=== PATIENT | male | born 1970 | race African-American/Black ===

== ENCOUNTER 2024-11-13 01:20 | Day surgery (SDC) | payer MEDICARE, MEDICAID, SELFPAY ==
[2024-11-03 10:06] VITALS: BMI 34.0
--- NOTE | 2024-11-03 10:43 | PC.NURSE ---
Pt has appt with Dr. Hu on 11/06/24 at 1400. They will send clearance to hold blood thinner after that appt.
--- NOTE | 2024-11-09 07:34 | SUR.PREOP ---
Spoke with patient in regards to his Eliquis. Instructed the patient to not take it today 11/09/24 and will be informed by Dr. Sandhu, after his procedure, when to resume.
--- OUTSIDE RECORDS SUMMARY | 2024-11-13 01:25 | XMS_ITS | Clinical Summary ---
Author Organization [facility] Facility Address [address] [address] Care Team Providers Care Business Line Controller Name Role Phone Unavailable Primary Care Provider Unavailabl e Social History Tobacco Use Types Packs/Day Years Used Date Smoking Tobacco: Some Days Alcohol Use Standard Drinks/Week Comments No 0 (1 standard drink = 0.6 oz pur e alcohol) Sex and Gender Information Value Date Recorded Sex Assigned at Not on file Legal Sex Male 2:49 PM EDT Gender Identity Not on file Sexual Orientation Not on file Last Filed Vital Signs Vital Sign [place] Time Taken Comments Blood Pressure 142/80 10/06/2019 12:00 PM RPG PROGRAMMER ANALYST Pulse 58 10/06/2019 12:00 PM RPG PROGRAMMER ANALYST Temperature - - Respiratory Rate 18 10/06/2019 12:00 PM RPG PROGRAMMER ANALYST Oxygen Saturation 97% 10/06/2019 12:00 PM RPG PROGRAMMER ANALYST Inhaled Oxygen Concentration - - Weight 112 kg (247 lb) 10/06/2019 12:00 PM RPG PROGRAMMER ANALYST Height 175.3 cm (5' 9 ) 10/06/2019 12:00 PM RPG PROGRAMMER ANALYST Body Mass Index 36.48 10/06/2019 12:00 PM RPG PROGRAMMER ANALYST Plan of Treatment Health Maintenance Due Date Last Done Comments Pneumococcal Vaccine: Peds ( 0 to 5 Years) and At-Risk Patients (6 to 49 Years) (1 of 2 - PCV) 1974 Hepatitis B Vaccine (1 of 3 - 19+ 3-dose series) 03/28 Colorectal Cancer Screening: Annual FOBT 2017 Colorectal Cancer Screening: Colonoscopy 2017 Colorectal Cancer Screening: Sigmoidoscopy 2017 Influenza Vaccine (Season Ended) 2025
--- OUTSIDE RECORDS SUMMARY | 2024-11-13 01:25 | XMS_ITS | Clinical Summary ---
Author Organization [facility] Address [address] [place] [address] Care Team Providers Care Press Technician Name Role Phone Juan Vo MD Primary Care Provider [phone] Source Comments PLEASE NOTE, if this patient is a minor, it may be UNLAWFUL to discuss sensitive information that is contained in these records (such as FAMILY PLANNING, MENTAL HEALTH or SUBSTANCE ABUSE) with the minor patient's parent or other person without the patient's specific authorization.[facility] Allergies No known active allergies Medications lisinopril (PRINIVIL,ZESTR IL) 40 mg tablet Take 40 mg by mouth once daily 7 Active atorvastatin (LIPITOR) 80 mg tablet Take 80 mg by mouth once daily 0 Active hydrOXYzine HCL (ATARAX) 50 mg tablet Take 1 Tablet by mouth 3 (three) times daily as needed for anxiety 1 Active cholecalciferol , vitamin D3, (VITAMIN D3) 1,250 mcg (50,000 unit) tab tabletIndicatio ns:Asymptomatic HIV infection ([facility]) Take 1 Tablet by mouth once a week 4 Tablet 1 Active sertraline (ZOLOFT) 50 mg tablet Take 50 mg by mouth once daily 2 Active traMADoL (ULTRAM) 50 mg tablet Take 50 mg by mouth 3 (three) times daily 2 Active metoprolol succinate XL (TOPROL-XL) 50 mg 24 hr tablet Take 1 tablet by mouth once daily 30 Tablet 11 2 Active albuterol HFA 90 mcg/actuation inhalerIndicati ons:Paroxysmal A-fib ([facility]) 3 Active ELIQUIS 5 mg tabIndications: Paroxysmal A-fib (HCC-CMS) Take 5 mg by mouth 2 (two) times daily 3 Active FARXIGA 10 mg tabIndications: Congestive heart failure, unspecified HF chronicity, unspecified heart failure type (HCC-CMS) TAKE 1 TABLET BY MOUTH ONCE DAILY IN THE MORNING 3 Active furosemide (LASIX) 40 mg tabletIndicatio ns:Congestive heart failure, unspecified HF chronicity, unspecified heart failure type (HCC-CMS) Take by mouth 3 Active NIFEdipine XL (PROCARDIA XL) 30 mg 24 hr tabletIndicatio ns:Coronary artery disease involving qagan tayagungin coronary artery of qagan tayagungin heart without angina pectoris 3 Active spironolactone (ALDACTONE) 50 mg tabletIndicatio ns:Coronary artery disease involving qagan tayagungin coronary artery of qagan tayagungin heart without angina pectoris,Conges tive heart failure, unspecified HF chronicity, unspecified heart failure type (HCC-CMS) Take 50 mg by mouth once daily Active triamcinolone (KENALOG) 0.1 % cream triamcinolone acetonide 0.1% cream Active bictegrav-emtri cit-tenofov ala (BIKTARVY) 50-200-25 mg tabIndications: HIV infection, unspecified symptom status (HCC-CMS) Take 1 Tablet by mouth once daily 30 Tablet 5 4 Active Active Problems Patient Care Coordination No te Formatting of this note migh t be different from the original. Care Plan Date: 10/03/2023 Care plan developed by: Gunnar Gunn and Juan Vo MD Treatment goals Goal #1: maintain virologic suppression Steps to accomplish goal: adherence counseling, regular clinic visits and labs Prognosis: good; patient has longstanding history of virologic suppression since at least 2019 Goal #2: maintain regular follow up with PCP and other specialists for management of other chronic medical issues Steps to accomplish goal: encouraged regular follow up with other providers; provided adherence counseling Prognosis: good Health promotion and Self Care: Referrals needed: none Medication management: per patient; medications for the most part are prescribed by other providers Self-management support: none needed Personal care needs: none needed Barriers to care: none Follow-up Next care plan review: at next visit with PCP Contact frequency: at least monthly Frequency of visits: every 3-4 months Care plan developed and discussed with patient. Copy given to patient and/or made available in After Visit Summary via Only-apartments. The care plan is also available to all members of the care team. Care Plan Date: 12/12/2022 Dx- HIV/AIDS Gunnar will have undetectable viral load (<200 copies/ml) and a CD4 count > 200 within 3 months. Steps to Accomplish Goal: Will take ART medications as prescribed. Will fill prescription during office visit or set up delivery. Prognosis- Met/will continue to monitor. VL undetectable at last office visit. Dx- Syphilis [place] will engage in protective practices that reduce HIV/STI risk to self and others by next office visit. Steps to Accomplish Goals: Sex Will identify realistic protective practices that patient can put in place. Will request STI testing when indicated or recommended by PCP. Prognosis- Met/ will continue to monitor. RPR is stable, educated on infection prevention. Dx- CKD [place] will maintain lab values within normal range to protect kidney health. Steps to accomplish Goals: Kidney function labs will be drawn at next office visit. Prognosis- Met/will continue to monitor. Lab values stable, Gunnar will continue to f/u with his Ticket Scheduler. Referrals needed: He follows with a PCP for management of CAD, HTN, CKD, cervical myelopathy, chronic knee and back pain. Medication management: patient reports no recent changes to Rx Self-management support: None Barriers to care: His transmission risk factors include sex with men. Follow-up for review of goals: At next appointment with PCP 01/30/23 Discussed with patient and patient aware of care plan. Copy given to patient and/or made available in After Visit Summary via Only-apartments Problem Noted Date Diagnosed Date Swelling of lower extremity 03/21/2023 Assessment & Plan (07/15/2024 10:34 AM SALES HOST): Check labwork today. Continue present management. Follow-up with PCP. CKD (chronic kidney disease) stage 3, GFR 30-59 ml/min ([facility]) 03/19/2022 Assessment & Plan (07/15/2024 10:34 AM SALES HOST): Monitor renal function. Avoid nephrotoxic agents. Control risk factors like HIV and hypertension. Follow-up with PCP. Monitor for now. Paroxysmal atrial fibrillation ([facility]) 020 Hyperlipidemia 05/05/2020 Assessment & Plan (07/15/2024 10:35 AM SALES HOST): Continue present management. Monitor lipids. Follow-up with PCP. Arteriosclerosis of coronary artery 05/05/2020 History of prosthetic heart valve 01/27/2017 Assessment & Plan (07/15/2024 10:35 AM SALES HOST): Noted. Cervical disc disorder with myelopathy 5 Assessment & Plan (07/15/2024 10:33 AM SALES HOST): Stable. Continue present management. Monitor for now. Muscle weakness of extremity 01/05/2014 Assessment & Plan (07/15/2024 10:33 AM SALES HOST): Stable. Continue present management. Monitor for now. Sciatica 11/13/2013 Assessment & Plan (07/15/2024 10:33 AM SALES HOST): Stable. Continue present management. Monitor for now. Syphilis 08/28/2007 Overview (12/22/2018): Diagnosed in 2010 MSM Partner is HIV (-) Reports condom use RPR 1:2 in 07/2017 RPR 1:4 in 01/[address] Recent treatment for rectal CT in 01/2018 Urine GC/CT (-) in 05/2018 (empirically treated) Last Assessment & Plan: 1. Sexually active without consistent condom use 2. Agreeable to STD screening (declined rectal and throat screening) 3. Will recheck RPR to assess for Syphilis 4. Advised that condoms are effective barrier against acquisition of STDs Hypertension 08/22/2007 Overview (12/22/2018): Managed on 3 drugs Previously at goal BP elevated today at 164/102, but has not taken medications today Scr 1.56 in 01/2018 Smokes Black & Milds Rare alcohol use Last Assessment & Plan: 1. Well controlled at last visit, but elevated today. Did not take medications yet today. Advised to take lexus. 2. Continue Lisinopril, Metoprolol XL & Hydralazine 3. Checked CMP and UA to assess renal function and proteinuria 4. Discussed (-) effects of alcohol on BP 5. Advised to stop smoking 2. Continue 3. Checked CMP and UA to assess renal function and proteinuria 4. Discussed (-) effects of alcohol on BP 5. Advised to stop smoking Assessment & Plan (07/15/2024 10:32 AM SALES HOST): Elevated blood pressure today; however, patient states that he is seeing outside PCP for this. Encouraged him to follow-up with PCP to monitor blood pressure. Human immunodeficiency virus (HIV) disease ([facility]) 05/26/2007 Overview (12/22/2018): Diagnosed in 2002 Genotype: R211K, F214L & V77I. HLA B5701 (-) G6PD wnl CMV IgG (+) Toxo IgG (-) HAV AB (+) HBV AB (+) Well controlled with healthy immune system. Currently on Genvoya. The patient's most recent labs from January 2018 noted a CD4 of 593 (26%) with a viral load of 25 copies. Last Assessment & Plan: 1. Continue Genvoya 2. Advised 100% adherence 3. Checked labs to assess for effectiveness and toxicity. Annual screening labs sent today. 4. Discussed undetectable = untransmittable 5. Reminded that condoms are effective barrier against STDS Assessment & Plan (07/15/2024 10:32 AM SALES HOST): Well-controlled in the past. Recheck lab work today. Continue present management. Encouraged 100% compliance with medications. Follow-up in 6 months with . Resolved Problems Problem Noted Date Diagnosed Date Resolved Date Pure hypercholesterolemia 12/07/2019 Myocardial infarction ([facility]) 03/21/2017 07/25/2020 Proteinuria 09/09/2009 04/27/2019 Immunizations Immunization Administration Dates Next Due Flu, Multi Dose 0.5 ML 08/14/2018 Flu, Preservative Free 04/17/2023,2021,07/10/2021,07/25,04/27/2019 INFLUENZA, SEASONAL, INJECTABLE 09/16/19 14,05/19/2012,10/17/2011,06/19 INFLUENZA, SEASONAL, INJECTA BLE, PRESERVATIVE FREE 07/10/2024,06/08/2015,05/19/2009,08/22 Moderna COVID-19 Vaccine, re d cap blue label, 12+ Primary Series 12/05/2020,11/07/2020 PNEUMOCOCCAL CONJUGATE PCV 13 02/02/2015 PNEUMOCOCCAL POLYSACCHARIDE PPV23 03/21/2017,02/2016,09/26/2007 TDAP 02/02/2015 Family History Medical History Relation Name Comments No Known Problems Father no informa tion. ? 40's Heart Problems Mother 07/2019. disseminated infection from ?endometritis Relation Name Status Comments Brother 1 Alive Brother 2 Alive Father Mother Sister 1 Alive Sister 2 Alive Social History Tobacco Use Types Packs/Day Years Used Date Smoking Tobacco: Former Cigars Q uit: 2021 Smokeless Tobacco: Never Tobacco Cessation:Counseling Given: Not Answered Comments:3 to 5 cigars a day Alcohol Use Standard Drinks/Week Comments Not Currently 0 (1 standard drink = 0.6 oz pur e alcohol) Social Connections Answer Date Recorded Connectedness 1 07/10/2024 Financial Resource Strain Answer Date R ecorded Financial Resource Strain 1 2023 Stress Answer Date Recorded Stress 0 07/25/2020 Physical Activity Answer Date Recorded Physical Activity 0 07/25/2020 Food Insecurity Answer Date Recorded Food 1 07/10/2024 Transportation Needs Answer Date Record ed Transportation 1 07/10/2024 Housing Stability Answer Date Recorded Housing 1 07/10/2024 Safety and Environment Answer Date Papi rded Safety 1 07/10/2024 Utilities Answer Date Recorded Utilities 0 07/25/2020 Employment Answer Date Recorded Stress 0 07/25/2020 Sex and Gender Information Value Date Recorded Sex Assigned at Male 12/22/2018 10:22 AM PDT Legal Sex Male 8:03 AM PDT Gender Identity Male 12/22/2018 10:22 AM PDT Sexual Orientation Lesbian or Jett 12/22/2018 10 :22 AM PDT Last Filed Vital Signs Vital Sign [place] Time Taken Comments Blood Pressure 144/90 07/10/2024 10:47 AM SALES HOST Pulse 68 07/10/2024 10:47 AM SALES HOST Temperature 36.4 C (97.6 F) 01/08/2024 10:55 AM CDT Respiratory Rate - - Oxygen Saturation 100% 07/10/2024 10:47 AM SALES HOST Inhaled Oxygen Concentration - - Weight 109 kg (240 lb 6.4 oz) 07/10/2024 10:47 A M SALES HOST Height 175.3 cm (5' 9 ) 07/10/2024 10:47 AM SALES HOST Body Mass Index 35.5 07/10/2024 10:47 AM SALES HOST Plan of Treatment Upcoming Encounters Date Type Department Care Team (Late st Contact Info) Description 01/13/2025 11:00 AM CDT Office Visit [facility] [address] [place] [phone] Juan Vo MD [address] [place] [phone] Health Maintenance Due Date Last Done Comments Anxiety Screening 1968 Hepatitis B Screening 1968 Urine Drug Screen 1968 Imm-Meningococcal (1 - Risk 2-dose series) 1970 Imm-MMR (1 of 2 - Risk 2-dos e series) 1986 Imm-Hepatitis A (1 of 2 - Ri sk 2-dose series) 1987 Imm-Hepatitis B (1 of 3 - 19 + 3-dose series) 1987 Imm-Zoster, Recombinant (1 of 2) 1987 CT Colonography 2013 Colonoscopy 2013 Colorectal Cancer Screening 2013 FIT/gFOBT 2013 Fecal DNA 2013 Flexible Sigmoidoscopy 2013 Imm-Pneumococcal (4 of 4 - P CV20 or PCV21) 03/21/2022 03/21/2017, 02/09/2016, 02/02/2015, Additional history exists [id number] ( season) 2024 021, 11/07/2020 Alcohol and Drug Screen 08/05/2024 Depression Annual Screen 08/05/2024 01/08/2024 Tobacco Screening 01/07/2025 01/08/2024 Imm-DTaP/Tdap/Td (2 - Td or Tdap) 02/02/2025 015 Lipid Screening 07/10/2025 07/10/2024, 06/0 12/2023, 03/13/2023, Additional history exists Syphilis Screening 07/10/2025 07/10/2024, 1 09/10/2023, 01/08/2024, Additional history exists Diabetes Screening 07/10/2027 07/10/2024, 0 01/08/2024, 01/08/2024, Additional history exists Hepatitis C Screening Completed 07/10/2024 , 01/08/2024, 10/31/2022, Additional history exists Imm-Influenza Completed 07/10/2024, 04/05, 06/25/2022, Additional history exists Procedures Procedure Name Priority Date/Time Associated Diagnosis Comments RPR (MONITOR) W/REFL TITER Routine 07/10/2024 11:17 AM SALES HOST HIV infection, unspecified symptom status (HCC-CMS) History of syphilis High risk medication use HEPATITIS C AB W/RFLX HCV RNA, QT, RT PCR Routine 07/10/2024 11:17 AM SALES HOST HIV infection, unspecified symptom status (HCC-CMS) High risk medication use COMPREHENSIVE METABOLIC PANEL Routine 07/10/2024 11:17 AM SALES HOST HIV infection, unspecified symptom status (HCC-CMS) Stage 3 chronic kidney disease, unspecified whether stage 3a or 3b CKD (HCC-CMS) Swelling of lower extremity High risk medication use LIPID PANEL Routine 07/10/2024 11:17 AM SALES HOST HIV infection, unspecified symptom status (HCC-CMS) Hyperlipidemia, unspecified hyperlipidemia type High risk medication use from Last 3 Months or Most Recently Relevant to Health Maintenance Results * HEPATITIS C AB W/RFLX HCV RNA, QT, RT PCR (07/10/2024 11:17 AM SALES HOST) HEPATITIS C ANTIBODY NON-REACT DILLON NON-REACT DILLON [facility] [place] Comment: HCV antibody was non-reactive. There is no laboratory evidence of HCV infection. In most cases, no further action is required. However, if recent HCV exposure is suspected, a test for HCV RNA (test code 90586) is suggested. For additional information please refer to http://education.Binfire.Cogenics/faq/XCR40g1 (This link is being provided for informational/ educational purposes only.) Blood Blood / Unknown 07/10/2024 1 1:17 AM SALES HOST 07/11/2024 5:33 AM SALES HOST Alexander Aguilar MD LAB - BLOOD DRAW Edited [facility] Performing Organization Address [facility] de Phone Number [facility] [place] [address] [employer] [facility] [place] [address], [employer] [address] [place] [address] * (ABNORMAL) RPR (MONITOR) W/REFL TITER (07/10/2024 11:17 AM SALES HOST) Pathologist [facility] RPR (MONITOR) W/REFL TITER REACTIVE( A) NON-REACT DILLON [facility] Comment: The RPR is a edf-wlhxywpzuo-qwllmwwq test; therefore, a treponemal-specific confirmatory test should be performed unless prior syphilis infection has been documented for this patient. Blood Blood / Unknown 07/10/2024 1 1:17 AM SALES HOST 07/11/2024 6:27 AM SALES HOST Alexander Aguilar MD LAB - BLOOD DRAW Edited [facility] Performing Organization Address [facility] Co de Phone Number [facility] [place] [address] [address] [place] [address], [facility] [place] [address] [place] [address] * LIPID PANEL (07/10/2024 11:17 AM SALES HOST) Pathologist [facility] CHOLESTEROL, TOTAL 138 <200 mg/dL [facility] HDL CHOLESTEROL 57 > OR = 40 mg/dL [facility] TRIGLYCERIDES 45 <150 mg/dL [facility] LDL-CHOLESTEROL 68 mg/dL (calc) [facility] Comment: Reference range: <100 Desirable range <100 mg/dL for primary prevention; <70 mg/dL for patients with CHD or diabetic patients with > or = 2 CHD risk factors. LDL-C is now calculated using the Roni calculation, which is a validated novel method providing better accuracy than the Friedewald equation in the estimation of LDL-C. Harley KLINE et al. PAOLA. 2013;310(19): 5227-2624 (http://education.BlenderHouse/faq/LWX418) CHOL/HDLC RATIO 2.4 <5.0 (calc) [facility] NON-HDL CHOLESTEROL 81 <130 mg/dL (calc) [facility] Comment: For patients with diabetes plus 1 major ASCVD risk factor, treating to a non-HDL-C goal of <100 mg/dL (LDL-C of <70 mg/dL) is considered a therapeutic option. Blood Blood / Unknown 07/10/2024 1 1:17 AM SALES HOST 07/11/2024 5:03 AM SALES HOST us Alexander Aguilar MD LAB - BLOOD DRAW Edited Resu lt - Final [facility] [place] [id number] [place] [address], [facility] [address] [place] [address] * (ABNORMAL) COMPREHENSIVE METABOLIC PANEL (07/10/2024 11:17 AM SALES HOST) [facility] GLUCOSE 89 65 - 99 mg/dL [facility] Comment: Fasting reference interval UREA NITROGEN (BUN) 17 7 - 25 mg/dL [facility] CREATININE (blood) 1.44(H) 0.70 - 1.30 mg/dL [facility] EGFR 57(L) > OR = 60 mL/min/1. 73m2 [facility] BUN/CREATININE RATIO 12 6 - 22 (calc) [facility] SODIUM 141 135 - 146 mmol/L [facility] POTASSIUM 4.2 3.5 - 5.3 mmol/L [facility] CHLORIDE 105 98 - 110 mmol/L [facility] CARBON DIOXIDE 30 20 - 32 mmol/L [facility] CALCIUM 9.2 8.6 - 10.3 mg/dL [facility] PROTEIN, TOTAL 7.2 6.1 - 8.1 g/dL [facility] ALBUMIN 4.3 3.6 - 5.1 g/dL [facility] GLOBULIN 2.9 1.9 - 3.7 g/dL (calc) [facility] ALBUMIN/GLOBULIN RATIO 1.5 1.0 - 2.5 (calc) [facility] BILIRUBIN, TOTAL 0.4 0.2 - 1.2 mg/dL [facility] ALKALINE PHOSPHATASE 72 35 - 144 U/L [facility] AST 14 10 - 35 U/L [facility] ALT 15 9 - 46 U/L [facility] Blood Blood / Unknown 07/10/2024 1 1:17 AM SALES HOST 07/11/2024 5:03 AM SALES HOST us Alexander Aguilar MD LAB - BLOOD DRAW Edited Resu lt - Final [facility] [place] [id number] [place] [address], [facility] [place] [address] [place] [address] from Last 3 Months or Most Recently Relevant to Health Maintenance Insurance [employer] Member Subscriber Plan / Payer (Ef fective 2022-Present) Name:Johanny Gunndayo Jason Relation to Subscriber:Self Name:Johanny Gunndayo Jason Payer ID:[id number] Group ID:Not on file Type:Indemnity Address: [facility] [address] [place] [address] Care Teams Press Technician Relationship Specialty Start Date End Date Juan Vo MD [address] [place] [address] PCP - General Infectious Diseases 01/29/23
--- OUTSIDE RECORDS SUMMARY | 2024-11-13 01:25 | XMS_ITS | CONTINUITY OF CARE DOCUMENT ---
Author Name leoderek leoderek Address Unknown Organization [facility] Address [address] [place] [address] Phone [phone] Care Team Providers Care Trial Lawyer Name Role Phone Fritz KEYES, Mirlande Unavailable PHYLLIS KEYES, TERESE Unavailable PHYLLIS KEYES, TERESE Unavailable PROBLEMS Condition Status Date Provider Notes Family History of Hypertension: completed - Aleksey Mclean Family History of Hypertension: completed - Aleksey Mclean Family History of Hypertension: completed - Aleksey Mclean Other symptoms involving cardiovascular system completed - Princess Mclean HTN active Constantin Mortensen MD Hx of NSTEMI active Constantin Mortensen MD Hiv disease active Constantin Mortensen MD Paroxysmal atrial fibrillation active Bethany Mclean CAD active Princess Mclean Hyperlipidemia active Pricness Mclean Hyperglycemia 123 04/2020 active Princess Mclean Shortness of breath active Princess Mclean Palpitations active Princess Mclean Weakness of limb- legs active Nate Blank Swelling of bilateral legs active Nate Gill dzai PVCs active Nate Blank Preoperative cardiovascular evaluation active Nate Blank ENCOUNTERS Date Type Provider Location Encounter Diag nosis - In-person encounter Office Visit Mirlande Hu MD [facility] Preoperative cardiovascular evaluation - In-person encounter Office Visit Mirlande Hu MD [facility] Office - In-person encounter Office Visit Mirlande Hu MD [facility] - In-person encounter Office Visit Mirlande Hu MD [facility] - In-person encounter Office Visit Mirlande Hu MD [facility] PVCs - In-person encounter Office Visit Mirlande Hu MD [facility] Swelling of bilateral legs - In-person encounter Office Visit Mirlande Hu MD [facility] Weakness of limb- legs - In-person encounter Office Visit Mirlande Hu MD [facility] - In-person encounter Office Visit Mirlande Hu MD [facility] Family History of Hypertension:Family History of Hypertension:Family History of Hypertension:Other symptoms involving cardiovascular systemParoxysmal atrial fibrillationCADHyperlipidemiaHyperglycemia 123 04/2020Shortness of breathPalpitations - In-person encounter Office Visit Constantin Mortensen MD [facility] HTNHx of NSTEMIHiv disease VITAL SIGNS Date Observation Value Provider Body Mass Index (Ratio) 35.59 kg/m2 Nate Blank blood pressure, diastolic 99 mm[Hg] Della Nolasco blood pressure, systolic 151 mm[Hg] Carly Nolasco oxygen saturation, oximetry 98 % Cleo Nolasco pulse rate 65 /min Cleo Nolasco respiratory rate E&M 12 /min Cleo Nolasco weight E&M 241 [lb_av] Cleo Nolasco height E&M 69 [in_i] Cleo Nolasco blood pressure, cuff size regular Della Nolasco Body Mass Index (Ratio) 35.44 kg/m2 Fredis Gibson blood pressure, diastolic 106 mm[Hg] Li nkLogic blood pressure, systolic 162 mm[Hg] Radha kLogic blood pressure, diastolic 106 mm[Hg] Kimberlee Roman blood pressure, systolic 162 mm[Hg] Prema Roman pulse rate 74 /min Miranda Perez s oxygen saturation, oximetry 98 % Miranda Roman blood pressure, cuff size regular Kimberlee Roman weight E&M 240 [lb_av] Miranda Perez s height E&M 69 [in_i] Miranda Perez s Body Mass Index (Ratio) 36.03 kg/m2 Nate Abhay blood pressure, diastolic 92 mm[Hg] Li nkLogic blood pressure, systolic 136 mm[Hg] Radha kLogic oxygen saturation, oximetry 98 % Kenia Angel pulse rate 73 /min Kenia Angel blood pressure, cuff size regular Ta bitaly Angel blood pressure, diastolic 92 mm[Hg] Ta bitha Angel blood pressure, systolic 136 mm[Hg] Tab itha Angel weight E&M 244 [lb_av] Kenia Angel respiratory rate E&M 12 /min Kenia Angel height E&M 69 [in_i] Kenia Angel Body Mass Index (Ratio) 35.73 kg/m2 Amarilis Shin blood pressure, cuff size large Saul Crawfordeld blood pressure, diastolic 80 mm[Hg] Ke rri Saharanealonzoelder blood pressure, systolic 122 mm[Hg] Francis Mead oxygen saturation, oximetry 99 % Kathie Mead respiratory rate E&M 12 /min Kathie oconnorenenfelder pulse rate 84 /min Kathie Ludwig lder weight E&M 242 [lb_av] Kathie Crawforde er height E&M 69 [in_i] Kathie Ludwig [facility] Body Mass Index (Ratio) 34.11 kg/m2 Nate Abhay blood pressure, diastolic 101 mm[Hg] Jennifer Log blood pressure, systolic 159 mm[Hg] Radha [facility] blood pressure, diastolic 101 mm[Hg] Della najera Manuel blood pressure, systolic 159 mm[Hg] Erum harper Jackson pulse rate 73 /min Charlee Manuel oxygen saturation, oximetry 98 % Charlee Manuel weight E&M 231 [lb_av] Charlee Manuel blood pressure, cuff size large An reinaldo Manuel height E&M 69 [in_i] Charleeharper Jackson Body Mass Index (Ratio) 34.40 kg/m2 Nate Blank blood pressure, diastolic 75 mm[Hg] Carmenza citlallializa Awilda blood pressure, systolic 131 mm[Hg] She liset Kaiser oxygen saturation, oximetry 97 % Pearl Kaiser pulse rate 80 /min Pearl Kaiser respiratory rate E&M 18 /min Pearl Kaiser blood pressure, cuff size large Sh edyta Kaiser weight E&M 233 [lb_av] Pearl Kaiser height E&M 69 [in_i] Pearl Awilda Body Mass Index (Ratio) 35.73 kg/m2 Nate Reevesangel respiratory rate E&M 17 /min Charlee Nabor cullennoy blood pressure, diastolic 78 mm[Hg] An reinaldo Manuel blood pressure, systolic 118 mm[Hg] Any harper Manuel pulse rate 92 /min Charlee Manuel oxygen saturation, oximetry 85 % Charlee Manuel weight E&M 242 [lb_av] Charlee Manuel blood pressure, cuff size large An reinaldo Manuel height E&M 69 [in_i] Charlee Manuel Body Mass Index (Ratio) 36.18 kg/m2 Taew on Vinay blood pressure, cuff size large Ke rri [place] blood pressure, diastolic 80 mm[Hg] Ke rri Osmanyuenenfphylliser blood pressure, systolic 130 mm[Hg] Francis ri [place] oxygen saturation, oximetry 98 % Kathie Mead respiratory rate E&M 18 /min Kathie huynh pulse rate 83 /min Kathie Oziel [facility] weight E&M 245 [lb_av] Kathie Ludwig [facility] height E&M 69 [in_i] Kathie Oziel [facility] Body Mass Index (Ratio) 37.06 kg/m2 Taew on Vinay blood pressure, diastolic 109 mm[Hg] Cy gloria Jackson blood pressure, systolic 186 mm[Hg] Yue francesca Jackson blood pressure, cuff size regular Cy gloria Jackson respiratory rate E&M 16 /min Mckenziefrancesca Jackson pulse rate 69 /min Mckenzie maynard oxygen saturation, oximetry 97 % Mckenzie Jackson weight E&M 251 [lb_av] Mckenzie maynard height E&M 69 [in_i] Mckenzie maynard Body Mass Index (Ratio) 37.80 kg/m2 Sue Mortensen MD blood pressure, resting Yes Tasia Shin respiratory rate E&M 18 /min Elana Hadley pulse rate 93 /min Elana Shni oxygen saturation, oximetry 98 % [facility] blood pressure, diastolic 80 mm[Hg] Aleksey martinez Hadley blood pressure, systolic 130 mm[Hg] Albert dennys Shin blood pressure, cuff size regular Aleksey martinez Hadley weight E&M 256 [lb_av] [facility] height E&M 69 [in_i] Elana Shin ALLERGIES No Known Drug Allergies RESULTS Date Observation Value Provider Reference Range Interpretation Location 0 lipoprotein, beta, serum, point, quantitative, calculated 101 mg/dL [facility] 0-99 High 0 HDL cholesterol, serum 51 mg/dL [facility] >39 0 triglyceride, serum, random 84 mg/dL [facility] 0-149 0 cholesterol, serum 168 mg/dL [facility] 781-180 9849/10/1 0 alanine aminotransferase (SGPT), serum 12 1/L [facility] 0-44 0 aspartate aminotransferase (SGOT), serum 13 1/L [facility] 0-40 0 alkaline phosphatase, serum 65 1/L [facility] 39-117 0 bilirubin, serum, total 0.5 mg/dL [facility] 0.0-1.2 0 albumin/globulin ratio, serum 1.8 [facility] 1.2-2.2 0 globulin, serum 2.5 [facility] 1.5-4.5 0 albumin, serum 4.4 g/dL [facility] 3.8-4.9 0 protein, total, serum 6.9 g/dL [facility] 6.0-8.5 0 calcium, serum 9.2 mg/dL [facility] 8.7-10.2 0 carbon dioxide, venous blood 25 mmol/L [facility] 20-29 0 chloride, serum 105 mmol/L [facility] 96-106 0 potassium, serum 4.1 mmol/L [facility] 3.5-5.2 0 sodium, serum 141 mmol/L [facility] 946-104 1800/10/1 0 urea nitrogen/creatinine ratio, serum 13 [facility] 9-20 0 eGFR if 70 mL/min/{1 .73_m2} [facility] >59 0 eGFR if not 60 mL/min/{1 .73_m2} [facility] >59 0 creatinine, serum 1.34 mg/dL [facility] 0.76-1.27 High 0 urea nitrogen, blood 17 mg/dL [facility] 6-24 0 blood glucose, random 79 mg/dL [facility] 65-99 HISTORY OF MEDICATION USE Medication Status Instructions Dates Provider Indications Com ments amiodarone 200 mg tablet active TAKE 1 TABLET TWICE DAILY Nate Blank nifedipine 30 mg tablet extended release 24hr active Take 1 tablet by mouth once daily Derrick Batista DNP,RN HYPERBARIC atorvastatin 80 mg tablet active TAKE 1 TABLET BY MOUTH EVERY DAY Derrick Batista DNP,RN HYPERBARIC magnesium oxide 400 mg (241.3 mg magnesium) tablet active Take 1 tablet by mouth once daily [place] Rushing furosemide 40 mg tablet active TAKE ONE TABLET BY MOUTH ON TUESDAYS, THURSDAYS, AND SATURDAYS AND 2 TABS ON MONDAYS, WEDNESDAYS, FRIDAYS, AND Sundays Kathie Cardona 50-200-25 mg tablet active DAILY Dea Mitchell NP triamcinolone acetonide 0.1% cream active NEEDED Dea Mitchell NP sertraline 50 mg tablet active DAILY Dea Mitchell NP spironolactone 50 mg tablet active TAKE 1 TABLET BY MOUTH ONCE DAILY IN THE MORNING Aria Rushing amiodarone 200 mg tablet completed TAKE 1 TABLET BY MOUTH DAILY - Dea Mitchell NP magnesium oxide 400 mg magnesium tablet completed Take 1 tablet by mouth once a day - Aria Rushing furosemide 40 mg tablet completed by mouth as directed take 1 tab (40mg) on , and Saturdays take 2 tabs (80mg) on Saturday, Saturday, Saturday, Saturday - Kathie Mead furosemide 20 mg tablet completed Take 1 tablet by mouth once a day - Dea Mitchell NP furosemide 20 mg tablet completed - Nate Blank spironolactone 50 mg tablet completed Take 1 tablet by mouth every morning - [place] Rushing furosemide 40 mg tablet completed Take 1 tablet by mouth once a day as directed take 1 tab (40mg) on , and Saturdaystake 2 tabs (80mg) on Saturday, Saturday, Saturday, Saturday - Dea Mitchell NP Farxiga 10 mg tablet active Take 1 tablet by mouth once a day Dea Mitchell NP Eliquis 5 mg tablet active Take 1 tablet by mouth twice daily Dea Mitchell NP furosemide 20 mg tablet completed - Nate Blank emtricitabine 200 mg capsule completed - Dea Mitchell NP aspirin 81 mg tablet,delayed release (DR/EC) completed TAKE 1 TABLET BY MOUTH ONCE DAILY - Dea Mitchell NP tramadol 50 mg tablet active NEEDED Dea Mitchell NP nifedipine 30 mg tablet extended release completed TAKE 1 TABLET BY MOUTH EVERY DAY - Derrick Batista DNP,RN HYPERBARIC metoprolol succinate 50 mg tablet extended release 24 hr active Take 1 tablet by mouth once a day Dea Mitchell NP albuterol sulfate 90 mcg/actuation HFA aerosol inhaler active INHALE 2 PUFFS BY MOUTH EVERY 6 HOURS NEEDED FOR WHEEZING FOR SHORTNESS OF BREATH Dea Mitchell NP spironolactone 50 mg tablet completed Take 1 tablet by mouth once daily - Charlee Jackson lisinopril 40 mg tablet completed Take 1 tablet by mouth once daily - Charlee Jackson atorvastatin 80 mg tablet completed one tab daily - Charlee Jackson spironolactone 50 mg tablet completed ONE TAB. DAILY - Princess Mclean lisinopril 40 mg tablet completed ONE TAB. DAILY - Princess Mclean clonidine HCl 0.1 mg tablet completed take 1 tab twice a day - Charlee Jackson spironolactone 50 mg tablet completed take 1 tab daily - Mckenzie Jackson Dulera 100-5 mcg/actuation HFA aerosol inhaler completed inhale 1 puff twice daily - Charlee Jackson LISINOPRIL 40 MG ORAL TABLET completed take 1 tab daily - Princess Mclean Biktarvy 50-200-25 mg tablet completed take 1 tab daily - Charlee Jackson albuterol sulfate 90 mcg/actuation HFA aerosol inhaler completed inhale 2 puffs every 4 hours as needed - Charlee Jackson clopidogrel 75 mg tablet completed 1 TAB DAILY - Charlee Jackson aspirin 325 mg tablet completed ONE TAB. DAILY - Charlee Jackson potassium chloride 40 mEq/15 mL liquid completed DIRECTED - Charlee Jackson OXYCODONE HCL 5 MG ORAL TABLET completed 1 TAB NEEDED - Mckenzie Jackson omeprazole 20 mg capsule,delayed release(/EC) completed 1 CAP DAILY - Charlee Jackson NORVASC 10 MG ORAL TABLET completed ONE TAB. DAILY - Mckenzie Jackson METOPROLOL SUCCINATE ER 200 MG ORAL TABLET EXTENDED RELEASE 24 HOUR completed one tab. daily - Mckenzie Jackson hydralazine 25 mg tablet completed take 1 tab three times a day - Charlee Jackson GABAPENTIN 300 MG ORAL CAPSULE completed 1 CAP 3 TIMES DAILY - Mckenzie Jackson BACLOFEN TABLET completed 20MG 3 TIMES DAILY - Mckenzie Jackson SOCIAL HISTORY Date Observation Value Provider personal history of marijuana use no Nate Ahmedzai drug use no Nate Ahmedzai alcohol use no Nate Ahmedzai year patient quit cigar use 2022 Nate Ahmedzai cigar use, date started 35 Nate Ahmedzai cigars, number smoke d per week 70 Nate Dotsonmedzai cigar use yes Nate Osoriozai smoking status Former smoker Nate Osorioza i personal history of marijuana use no Derrick Batista [facility] drug use no Derrick DE PAZ P,[facility] alcohol use no Derrick DE PAZ P,[facility] year patient quit cigar use 2022 Derrick Batista [facility] cigar use, date started 35 Daniel Batista [facility] cigars, number smoke d per week 70 Derrick Batista [facility] cigar use yes Derrick DE PAZ P,[facility] smoking status Former smoker Derrick Batista DNP,[facility] year patient quit cigar use 2022 Dea Mitchell NP cigar use, date started 35 Maddi Mitchell GRAIN OPERATIONS MANAGER cigars, number smoke d per week 70 Dea Mitchell GRAIN OPERATIONS MANAGER cigar use yes Dea gonzales NP smoking status Former smoker Dea barajas NP Exercise counseling Yes Dea Mitchell GRAIN OPERATIONS MANAGER year patient quit cigar use 2022 Constantino Aleida cigar use, date started 35 Amarilis arvizu Aleida cigars, number smoke d per week 70 Constantino Aleida cigar use yes Constantino Aleida smoking status Former smoker Constantino Connelly umm social history E&M S moking History: Pritesh portillo is a former smoker. Nate Blank social history reviewed E&M revi ewed - no changes required Nate Blank year patient quit cigar use 2022 Charleeharper Jackson cigar use, date started 35 Charleeharper Jackson cigars, number smoke d per week 70 Charleeharper Jackson cigar use yes Charleeharper Jackson smoking status Former smoker Charleeharper fan cigar use, date started 35 Maddi Mitchell GRAIN OPERATIONS MANAGER cigars, number smoke d per week 70 Dea Mitchell GRAIN OPERATIONS MANAGER cigar use yes Dea gonzales GRAIN OPERATIONS MANAGER smoking status Former smoker Dea barajas GRAIN OPERATIONS MANAGER social history E&M S moking History: Pritesh portillo is a former smoker. Nate Blank social history reviewed E&M revi ewed - no changes required Nate Blank year patient quit cigar use 2022 Charlee Manuel cigars, number smoke d per week 1 Charlee Manuel cigar use yes Charlee Manuel smoking status Former smoker Charlee Deuce fan social history E&M S moking History: Pritesh portillo currently smokes every day. Princess Mclean social history reviewed E&M revi ewed - no changes required Princess Mclean number of grandchildren Mirlande Mclean cigars, number smoke d per week 1 Kathie Mead cigar use yes Kathie Oziel patricia smoking status Current every day smoker Arabella madden [place] social history E&M S moking History: P atient currently smokes every day. Princess Vinay social history reviewed E&M revi ewed - no changes required Alekseyreginaguanaco Mclean cigars, number smoke d per week 1 Mckenzie Jackson cigar use yes Mckenzie maynard smoking status Current every day smoker C christian Jackson social history reviewed E&M revi ewed - no changes required Constantin Mortensen MD number of grandchildren Constantin Mortensen MD U grace Mortensen MD cigars, number smoke d per week 1 Elana Shin cigar use yes Elana Shin smoking status Current every day smoker Eunice baroneantelmo Aleida FUNCTIONAL STATUS Date Observation Value Provider HRA, CV Assess/Plan, Angina (inactive) Management Plan continue current therapy Nate Ahmedzai HRA, CV Assess/Plan, Angina (inactive) Management Plan continue current therapy Derrick Batista DNP,RN HYPERBARIC HRA, CV Assess/Plan, Angina (inactive) Management Plan continue current therapy Dea Mitchell NP HRA, CV Assess/Plan, Angina (inactive) Management Plan continue current therapy Constantino Shin HRA, CV Assess/Plan, Angina (inactive) Management Plan continue current therapy Nate Ahmedzai HRA, CV Assess/Plan, Angina (inactive) Management Plan continue current therapy Dea Mitchell NP HRA, CV Assess/Plan, Angina (inactive) Management Plan continue current therapy Nate Ahmedzai HRA, CV Assess/Plan, Angina (inactive) Management Plan continue current therapy Taewon Vinay HRA, CV Assess/Plan, Angina (inactive) Management Plan continue current therapy Taewon Vinay HRA, CV Assess/Plan, Angina (inactive) Management Plan continue current therapy Constantin Mortensen MD FAMILY HISTORY Family Member Condition Full Brother Family History of Hy pertension: Full Sister Family History of Hy pertension: Mother Family History of Hy pertension: INSURANCE PROVIDERS Payer name Policy type / Coverage type Tasia red libertarian ID [employer] O [id number] [facility] Medicaid 1 [id number] ADVANCE DIRECTIVES Name Date DISCUSSED - NO DECISION MADE TREATMENT PLAN Date Name Performer [id number],C, P t states that he has been experiencing increaed BLE swelling R > L, increased pain/tingling, increaed SOB/VAZQUEZ, orthopnea, PND, will check venous doppler with reflux will have pt take 2 tabs of 40mg lasix (80mg) on ---Sat, and 1 tab of 40mg lasix (40mg) on --SAT Nate Blank [id number],C, B P today: 159/101 P rior BP: 131/75 (03/22/2023) Labs Reviewed: C reat: 1.34 (05/14/2020) C hol: 168 (05/14/2020) HDL: 51 (05/14/2020) Nate Blank [id number],C,w ill check holter to assess burden w ill start him on Amiodarone 200 mg once daily after holter w ill start him on Magnesium 400 mg once daily at this time Nate Blank [id number],S, Nate Reeves i [id number],S, Nate Reeves i [id number],C,lab work resu lts pending Nate Blank [id number],C,w ill check holter to assess his frequent PVCs today Nate Blank [id number],CDea GRAIN OPERATIONS MANAGER [id number],C, B P today: 131/75 P rior BP: 118/78 (03/08/2023) Labs Reviewed: C reat: 1.34 (05/14/2020) C hol: 168 (05/14/2020) HDL: 51 (05/14/2020) The following medications were removed from the medication list: Furosemide 40 Mg Tablet (Furosemide) ..... Take 1 tablet by mouth once a day as directed take 1 tab (40mg) on , and saturdaystake 2 tabs (80mg) on saturday, saturday, saturday, saturday Furosemide 20 Mg Tablet (Furosemide) ..... Take 1 tablet by mouth once a day His updated medication list for this problem includes: Furosemide 40 Mg Tablet (Furosemide) ..... By mouth as directed take 1 tab (40mg) on , and saturdays take 2 tabs (80mg) on saturday, saturday, saturday, saturday Metoprolol Succinate 50 Mg Tablet Extended Release 24 Hr (Metoprolol succinate) ..... Take 1 tablet by mouth once a day Nifedipine 30 Mg Tablet Extended Release (Nifedipine) ..... Take 1 tablet by mouth every day Spironolactone 50 Mg Tablet (Spironolactone) ..... Take 1 tablet by mouth every morning Aspirin 81 Mg Tablet,delayed Release (dr/ec) (Aspirin) ..... Take 1 tablet by mouth once daily Dea Mitchell NP [id number],C,C HOL: 168 (05/14/2020) HDL: 51 (05/14/2020) Dea Mitchell NP [id number],C,P t states that he has been experiencing increaed BLE swelling R > L, increased pain/tingling, increaed SOB/VAZQUEZ, orthopnea, PND, will check venous doppler with reflux w ill have pt take 2 tabs of 40mg lasix (80mg) on , and 1 tab of 40mg lasix (40mg) on Dea Mitchell NP [id number],C,will check 48 hr holter for burden Nate Blank [id number],C, B P today: 118/78 P rior BP: 130/80 (05/27/2020) Labs Reviewed: C reat: 1.34 (05/14/2020) C hol: 168 (05/14/2020) HDL: 51 (05/14/2020) Nate Blank [id number],C,I ncrease SOB, will add lasix and spironolactone for diuresis, has mild edema. w ill check lab work as well. Nate Reevesangel [id number],S, Nate Reeves i Electrophysiology:He is to undergo Colonoscopy, he may undergo this without restrictions, stop Eliquis 5 days prior His updated medication list for this problem includes: Nifedipine 30 Mg Tablet Extended Release 24hr (Nifedipine) ..... Take 1 tablet by mouth once daily Metoprolol Succinate 50 Mg Tablet Extended Release 24 Hr (Metoprolol succinate) ..... Take 1 tablet by mouth once a day Nate Reevesangel Electrophysiology: H is updated medication list for this problem includes: Spironolactone 50 Mg Tablet (Spironolactone) ..... Take 1 tablet by mouth once daily in the morning Nifedipine 30 Mg Tablet Extended Release 24hr (Nifedipine) ..... Take 1 tablet by mouth once daily Furosemide 40 Mg Tablet (Furosemide) ..... Take one tablet by mouth on tuesdays, , and saturdays and 2 tabs on mondays, wednesdays, fridays, and sundays Metoprolol Succinate 50 Mg Tablet Extended Release 24 Hr (Metoprolol succinate) ..... Take 1 tablet by mouth once a day Nateannalisa Reevesangel Electrophysiology: O n OAC eliquis. EKG today SRPhoenix ingram had run of AF with RVR in 2022, fastest was 237 bpm, avg 185 bpm, will obtain 2 day holter and start Amiodarone 200 mg once daily on November 09 given he will be undergoing colonoscopy. H is updated medication list for this problem includes: Nifedipine 30 Mg Tablet Extended Release 24hr (Nifedipine) ..... Take 1 tablet by mouth once daily Metoprolol Succinate 50 Mg Tablet Extended Release 24 Hr (Metoprolol succinate) ..... Take 1 tablet by mouth once a day His updated medication list for this problem includes: Amiodarone 200 Mg Tablet (Amiodarone) ..... Take 1 tablet twice daily Nifedipine 30 Mg Tablet Extended Release 24hr (Nifedipine) ..... Take 1 tablet by mouth once daily Metoprolol Succinate 50 Mg Tablet Extended Release 24 Hr (Metoprolol succinate) ..... Take 1 tablet by mouth once a day Orders: 9 9213 LTD 20-29min ([id number]) C omplex e/m visit add on (G2211) Nate Blank Electrophysiology: N o chest pains. h x stent LAD 2016 H is updated medication list for this problem includes: Nifedipine 30 Mg Tablet Extended Release 24hr (Nifedipine) ..... Take 1 tablet by mouth once daily Metoprolol Succinate 50 Mg Tablet Extended Release 24 Hr (Metoprolol succinate) ..... Take 1 tablet by mouth once a day Nate Blank Electrophysiology:Mo nitor BP at home, goal BP is <135/85 BP today: 151/99 P rior BP: 162/106 (09/25/2024) Labs Reviewed: C reat: 1.34 (05/14/2020) C hol: 168 (05/14/2020) HDL: 51 (05/14/2020) LDL: 101 (05/14/2020) T (05/14/2020) His updated medication list for this problem includes: Spironolactone 50 Mg Tablet (Spironolactone) ..... Take 1 tablet by mouth once daily in the morning Nifedipine 30 Mg Tablet Extended Release 24hr (Nifedipine) ..... Take 1 tablet by mouth once daily Furosemide 40 Mg Tablet (Furosemide) ..... Take one tablet by mouth on tuesdays, , and saturdays and 2 tabs on mondays, wednesdays, fridays, and sundays Metoprolol Succinate 50 Mg Tablet Extended Release 24 Hr (Metoprolol succinate) ..... Take 1 tablet by mouth once a day Nate Blank Electrophysiology:Wa s taking atorvastatin and crestor. Stop crestor and continue atorvastatin. His updated medication list for this problem includes: Atorvastatin 80 Mg Tablet (Atorvastatin) ..... Take 1 tablet by mouth every day [facility] Electrophysiology:No chest pains. h x stent LAD 2016 H is updated medication list for this problem includes: Nifedipine 30 Mg Tablet Extended Release 24hr (Nifedipine) ..... Take 1 tablet by mouth once daily Metoprolol Succinate 50 Mg Tablet Extended Release 24 Hr (Metoprolol succinate) ..... Take 1 tablet by mouth once a day SELENA Heard DNPP Electrophysiology:El evated. Will restart nifedipine. Will update echo. Last one was 2019 LVEF 60%, akinesis noted on TODD in 2022 in [place]. BP today: 162/106 P rior BP: 136/92 (03/20/2024) H is updated medication list for this problem includes: Nifedipine 30 Mg Tablet Extended Release 24hr (Nifedipine) ..... Take 1 tablet by mouth once daily Spironolactone 50 Mg Tablet (Spironolactone) ..... Take 1 tablet by mouth once daily in the morning Furosemide 40 Mg Tablet (Furosemide) ..... Take one tablet by mouth on tuesdays, , and saturdays and 2 tabs on mondays, wednesdays, fridays, and sundays Metoprolol Succinate 50 Mg Tablet Extended Release 24 Hr (Metoprolol succinate) ..... Take 1 tablet by mouth once a day SELENA Heard DNPP Electrophysiology:On OAC eliquis. EKG today SR. Will get 15 day monitor to assess prescence of afib. H is updated medication list for this problem includes: Nifedipine 30 Mg Tablet Extended Release 24hr (Nifedipine) ..... Take 1 tablet by mouth once daily Metoprolol Succinate 50 Mg Tablet Extended Release 24 Hr (Metoprolol succinate) ..... Take 1 tablet by mouth once a day SELENA Heard DNPP Electrophysiology: BLE swelling R>L ('Right is always bigger than left') no pain reported in leg D id not get venous reflux. Swelling reported to be improved. No further testing indicated. Derrick Batista DNP,RN HYPERBARIC Electrophysiology:hx stent LAD 2016 His updated medication list for this problem includes: Metoprolol Succinate 50 Mg Tablet Extended Release 24 Hr (Metoprolol succinate) ..... Take 1 tablet by mouth once a day Nifedipine 30 Mg Tablet Extended Release (Nifedipine) ..... Take 1 tablet by mouth every day eliquis 5mg BID Dea Micthell NP Electrophysiology: tele from 04/2023 aflutter 4%, freq PVCs, occ svt. appears that amio was started at 200mg daily. amio was last refilled , and pt is not currently taking. pt is on eliquis 5mg BID, but states that he has only been taking it ONCE A DAY. explained the risks of only taking daily and instructed to take BID EKG today SR PVC. will check 48hr monitor Dea Mitchell NP Electrophysiology:CH OL: 168 (05/14/2020) LDL: 101 (05/14/2020) HDL: 51 (05/14/2020) T (05/14/2020) His updated medication list for this problem includes: Rosuvastatin 20 Mg Tablet (Rosuvastatin) ..... Take 1 tablet by mouth every day Dea Mitchell NP Electrophysiology:te le from 04/2023 aflutter 4%, freq PVCs, occ svt. appears that amio was started at 200mg daily. amio was last refilled , and pt is not currently taking. EKG today SR PVC no recurrence of palpitations. will recheck 48hr telesentry to assess aflutter, ectopy burden Dea Mitchell NP Electrophysiology: BLE swelling R>L ('Right is always bigger than left') no pain reported in leg w ill check venous doppler with reflux c ompression stockings 20-30mmHg v enous US revealed no DVT Dea Mitchell NP Electrophysiology: tele from 04/2023 aflutter 4%, freq PVCs, occ svt. appears that amio was started at 200mg daily. amio was last refilled , and pt is not currently taking. EKG today SR PVC will check 48hr holter H is updated medication list for this problem includes: Metoprolol Succinate 50 Mg Tablet Extended Release 24 Hr (Metoprolol succinate) ..... Take 1 tablet by mouth once a day Nifedipine 30 Mg Tablet Extended Release (Nifedipine) ..... Take 1 tablet by mouth every day magnesium oxide 400mg BID Dea Howardchristian GRAIN OPERATIONS MANAGER Electrophysiology:LD L 100 w ill start rosuvastatin 20mg daily Constantino Aleida Electrophysiology: H is updated medication list for this problem includes: Metoprolol Succinate 50 Mg Tablet Extended Release 24 Hr (Metoprolol succinate) ..... Take 1 tablet by mouth once a day Nifedipine 30 Mg Tablet Extended Release (Nifedipine) ..... Take 1 tablet by mouth every day Aspirin 81 Mg Tablet,delayed Release (dr/ec) (Aspirin) ..... Take 1 tablet by mouth once daily Constantino Aleida Electrophysiology: length control tester S inus Rhythm with paroxysmal Atrial Flutter, frequent Ventricular ectopics, and o ccasional Supraventricular ectopics. Sinus: AvgHR 69bpm, MaxHR 137bpm, MinHR 4 5bpm. AFL: MaxHR 237bpm, MinHR 180bpm, AFL burden 4%. VE?s were d ocumented as triplets, couplets, and isolated beats, VE burden 6.14%. SVE?s were d ocumented as a triplet, couplets, and isolated beats, SVE burden 1.71%. Constantinonolberto Shin Electrophysiology:ve nous US revealed no DVT s welling has improved and he has stopped taking furosemide Constantino Aleida Electrophysiology:im proved today BP today: 122/80 P rior BP: 159/101 (04/19/2023) Labs Reviewed: C reat: 1.34 (05/14/2020) C hol: 168 (05/14/2020) HDL: 51 (05/14/2020) LDL: 101 (05/14/2020) T (05/14/2020) His updated medication list for this problem includes: Furosemide 40 Mg Tablet (Furosemide) ..... By mouth as directed take 1 tab (40mg) on , and saturdays take 2 tabs (80mg) on saturday, saturday, saturday, saturday Metoprolol Succinate 50 Mg Tablet Extended Release 24 Hr (Metoprolol succinate) ..... Take 1 tablet by mouth once a day Nifedipine 30 Mg Tablet Extended Release (Nifedipine) ..... Take 1 tablet by mouth every day Spironolactone 50 Mg Tablet (Spironolactone) ..... Take 1 tablet by mouth every morning Aspirin 81 Mg Tablet,delayed Release (dr/ec) (Aspirin) ..... Take 1 tablet by mouth once daily Constantino Shin Electrophysiology: P t states that he has been experiencing increaed BLE swelling R > L, increased pain/tingling, increaed SOB/VAZQUEZ, orthopnea, PND, will check venous doppler with reflux will have pt take 2 tabs of 40mg lasix (80mg) on -, and 1 tab of 40mg lasix (40mg) on - Nate Blank Electrophysiology: B P today: 159/101 P rior BP: 131/75 (03/22/2023) Labs Reviewed: C reat: 1.34 (05/14/2020) C hol: 168 (05/14/2020) HDL: 51 (05/14/2020) Nate Blank Electrophysiology:wi ll check holter to assess burden w ill start him on Amiodarone 200 mg once daily after holter w ill start him on Magnesium 400 mg once daily at this time Nate Blank Electrophysiology Nate Blank Electrophysiology Nate Blank Electrophysiology:lab work resul ts pending Nate Blank Electrophysiology:wi ll check holter to assess his frequent PVCs today Nate Blank Electrophysiology Dea long NP Electrophysiology: B P today: 131/75 P rior BP: 118/78 (03/08/2023) Labs Reviewed: C reat: 1.34 (05/14/2020) C hol: 168 (05/14/2020) HDL: 51 (05/14/2020) The following medications were removed from the medication list: Furosemide 40 Mg Tablet (Furosemide) ..... Take 1 tablet by mouth once a day as directed take 1 tab (40mg) on , and saturdaystake 2 tabs (80mg) on saturday, saturday, saturday, saturday Furosemide 20 Mg Tablet (Furosemide) ..... Take 1 tablet by mouth once a day His updated medication list for this problem includes: Furosemide 40 Mg Tablet (Furosemide) ..... By mouth as directed take 1 tab (40mg) on , and saturdays take 2 tabs (80mg) on saturday, saturday, saturday, saturday Metoprolol Succinate 50 Mg Tablet Extended Release 24 Hr (Metoprolol succinate) ..... Take 1 tablet by mouth once a day Nifedipine 30 Mg Tablet Extended Release (Nifedipine) ..... Take 1 tablet by mouth every day Spironolactone 50 Mg Tablet (Spironolactone) ..... Take 1 tablet by mouth every morning Aspirin 81 Mg Tablet,delayed Release (dr/ec) (Aspirin) ..... Take 1 tablet by mouth once daily Dea Mitchell NP Electrophysiology:CH OL: 168 (05/14/2020) HDL: 51 (05/14/2020) Dea Mitchell NP Electrophysiology:Pt states that he has been experiencing increaed BLE swelling R > L, increased pain/tingling, increaed SOB/VAZQUEZ, orthopnea, PND, will check venous doppler with reflux will have pt take 2 tabs of 40mg lasix (80mg) on -, and 1 tab of 40mg lasix (40mg) on --SAT Dea Mitchell NP Electrophysiology:will check 48 hr holter for burden Nate Blank Electrophysiology: B P today: 118/78 P rior BP: 130/80 (05/27/2020) Labs Reviewed: C reat: 1.34 (05/14/2020) C hol: 168 (05/14/2020) HDL: 51 (05/14/2020) Nate Blank Electrophysiology:In crease SOB, will add lasix and spironolactone for diuresis, has mild edema. w ill check lab work as well. Nate Blank Electrophysiology Nate fe Electrophysiology Fo llow up - completec :Conclusions: Good patient effort and cooperation. FVC and FEV1 meet Grade A criteria. DLCO meets Grade A criteria. FRC is acceptable a nd repeatable. P ulmonary Function Diagnosis: M ild Neuromuscular Disease His updated medication list for this problem includes: Spironolactone 50 Mg Oral Tablet (Spironolactone) ..... One tab. daily Lisinopril 40 Mg Oral Tablet (Lisinopril) ..... One tab. daily Spironolactone 50 Mg Oral Tablet (Spironolactone) ..... Take 1 tab daily Aspirin 325 Mg Oral Tablet (Aspirin) ..... One tab. daily Tareginaon Vinay Electrophysiology Fo llow up - completec : B P today: 130/80 P rior BP: 186/109 (05/06/2020) Labs Reviewed: C reat: 1.34 (05/14/2020) C hol: 168 (05/14/2020) HDL: 51 (05/14/2020) H is updated medication list for this problem includes: Spironolactone 50 Mg Oral Tablet (Spironolactone) ..... One tab. daily Lisinopril 40 Mg Oral Tablet (Lisinopril) ..... One tab. daily Clonidine Hcl 0.1 Mg Oral Tablet (Clonidine hcl) ..... Take 1 tab twice a day Spironolactone 50 Mg Oral Tablet (Spironolactone) ..... Take 1 tab daily Aspirin 325 Mg Oral Tablet (Aspirin) ..... One tab. daily Hydralazine Hcl 25 Mg Oral Tablet (Hydralazine hcl) ..... Take 1 tab three times a day Princess Vinay Electrophysiology [facility] up - completec :continue meds His updated medication list for this problem includes: Lisinopril 40 Mg Oral Tablet (Lisinopril) ..... One tab. daily Clopidogrel Bisulfate 75 Mg Oral Tablet (Clopidogrel bisulfate) ..... 1 tab daily Aspirin 325 Mg Oral Tablet (Aspirin) ..... One tab. daily CONCLUSIONS: 1 . Normal left ventricular systolic function. Normal left ventricular size. Mild concentric left ventricular hypertrophy. Mitral i nflow Doppler demonstrates pseudonormal pattern consistent with diastolic dysfunction. E/E': 13.9. Left ventricular ejection f raction is measured at 60 %. 2 . There is mild enlargement of the left atrium. 3 . There is non-specific thickening of the mitral valve leaflets. Mild mitral valve regurgitation. 4 . There is mild tricuspid regurgitation. 5 . There is mild pulmonic regurgitation. E lectronically Signed By: Mirlande Rosenbaum 2 020 16:13:55 CDT Brijeshguanaco Vinay Electrophysiology [facility] up - completec :in sinus now n o afib documented on monitor Interpretation: Sinus Rhythm with Intermittent Sinus Arrhythmia and Supraventricular E ctopics and Ventricular Ectopics. T here was one run of Atrial Tachycardia noted, which run lasting 3.5 seconds with a max h eart rate of 193 BPM. S upraventricular ectopy was documented in the form of 1 run and isolated beats with a burden o f less than 0.1%. V entricular ectopy was documented in the form of 1 bigeminal cycle and isolated beats with a b urden of 0.6%. T he average heart rate was 68 BMP. T he minimum heart rate was 43 BPM. T he maximum heart rate was 117 BPM. His updated medication list for this problem includes: Lisinopril 40 Mg Oral Tablet (Lisinopril) ..... One tab. daily Clopidogrel Bisulfate 75 Mg Oral Tablet (Clopidogrel bisulfate) ..... 1 tab daily Aspirin 325 Mg Oral Tablet (Aspirin) ..... One tab. daily Princess Mclean Electrophysiology: O rders: F VC - 91145 (72053) F - 86251 (02560) D O - 00078 (40060) 9 9267 MOD Complex (CPT-16495) The following medications were removed from the medication list Norvasc 10 Mg Oral Tablet (Amlodipine besylate) ..... One tab. daily Metoprolol Succinate Er 200 Mg Oral Tablet Extended Release 24 Hour (Metoprolol succinate) ..... One tab. daily His updated medication list for this problem includes: Spironolactone 50 Mg Oral Tablet (Spironolactone) ..... One tab. daily Lisinopril 40 Mg Oral Tablet (Lisinopril) ..... One tab. daily Spironolactone 50 Mg Oral Tablet (Spironolactone) ..... Take 1 tab daily Aspirin 325 Mg Oral Tablet (Aspirin) ..... One tab. daily Princess Mclean Electrophysiology: H is updated medication list for this problem includes: Atorvastatin Calcium 80 Mg Oral Tablet (Atorvastatin calcium) ..... One tab daily Orders: L IPID PANEL [phone] MOD Complex (CPT-49801) Princess Mclean Electrophysiology: B P elevated in office. add lisinopril, spironolactone B P today: 186/109 P rior BP: 130/80 (01/28/2017) The following medications were removed from the medication list: Norvasc 10 Mg Oral Tablet (Amlodipine besylate) ..... One tab. daily Metoprolol Succinate Er 200 Mg Oral Tablet Extended Release 24 Hour (Metoprolol succinate) ..... One tab. daily H is updated medication list for this problem includes: Clonidine Hcl 0.1 Mg Oral Tablet (Clonidine hcl) ..... Take 1 tab twice a day Spironolactone 50 Mg Oral Tablet (Spironolactone) ..... Take 1 tab daily Lisinopril 40 Mg Oral Tablet (Lisinopril) ..... Take 1 tab daily Aspirin 325 Mg Oral Tablet (Aspirin) ..... One tab. daily Hydralazine Hcl 25 Mg Oral Tablet (Hydralazine hcl) ..... Take 1 tab three times a day Princess Vinay Electrophysiology: T he following medications were removed from the medication list: Norvasc 10 Mg Oral Tablet (Amlodipine besylate) ..... One tab. daily Metoprolol Succinate Er 200 Mg Oral Tablet Extended Release 24 Hour (Metoprolol succinate) ..... One tab. daily His updated medication list for this problem includes: Lisinopril 40 Mg Oral Tablet (Lisinopril) ..... One tab. daily Clopidogrel Bisulfate 75 Mg Oral Tablet (Clopidogrel bisulfate) ..... 1 tab daily Aspirin 325 Mg Oral Tablet (Aspirin) ..... One tab. daily Princess Mclean Electrophysiology: T he following medications were removed from the medication list: Norvasc 10 Mg Oral Tablet (Amlodipine besylate) ..... One tab. daily Metoprolol Succinate Er 200 Mg Oral Tablet Extended Release 24 Hour (Metoprolol succinate) ..... One tab. daily His updated medication list for this problem includes: Lisinopril 40 Mg Oral Tablet (Lisinopril) ..... One tab. daily Clopidogrel Bisulfate 75 Mg Oral Tablet (Clopidogrel bisulfate) ..... 1 tab daily Aspirin 325 Mg Oral Tablet (Aspirin) ..... One tab. daily Orders: C omplete Echo (CPT-05760) H olter Monitor 48 hr (CPT-74068) Princess Mclean Cardiology:Doing well. Constantin terrazas MD Cardiology:controlle d. BP today: 130/80 Constantin Mortensen MD Date Name Holter Monitor 48 hr CBC (INCLUDES DIFF/P LT) LIPID PANEL TSH, free T4, total T3 COMPREHENSIVE METABO LIC PANEL, W/EGFR Monitor - Telemetry (Mobile Cardiac) Complete Echo Venous Doppler Bilat eral LE - Reflux Complete Echo Holter Monitor 48 hr Monitor - Telemetry (Mobile Cardiac) DLCO - 95326 FRC - 74844 FVC - 15862 Complete Echo DLCO - 65679 FRC - 25813 FVC - 32986 Holter Monitor 48 hr MAGNESIUM COMPREHENSIVE METABO LIC PANEL, W/EGFR Venous Doppler Bilat eral LE - Reflux LIPID PANEL TSH, free T4, total T3 Holter Monitor 48 hr PROBNP, N TERMINAL Cortisol CRP, high sensitivit y COMPREHENSIVE METABO LIC PANEL, W/EGFR Holter Monitor 48 hr Complete Echo DLCO - 29842 FRC - 76257 FVC - 17495 COMPREHENSIVE METABO LIC PANEL, W/EGFR LIPID PANEL Carotid Duplex Bilat eral Complete Echo HISTORY OF PROCEDURES Procedure Date Procedure Name Provider Procedure Notes S tatus Complex e/m visit add on Mirlande Hu MD completed Complex e/m visit add on Mirlande Hu MD completed EKG Mirlande fan MD completed Schedule Followup Mirlande jang MD [address] HU completed EKG Mirlande fan MD completed EKG Mirlande fan MD completed EKG Mirlande fan MD completed EKG Mirlande fan MD completed EKG Mirlande fan MD completed EKG Mirlande fan MD completed FVC / MVV - 15368 Mirlande jang MD completed FRC - 93872 Mirlande fan MD completed SpO2 w/o 6min walk/titration Mirlande Hu MD completed DLCO - 63073 Mirlande fan MD completed EKG Mirlande fan MD completed SNOMED-CT: [id number] Physical Exam, Performed: Pulse Exam of Foot Constantin Mortensen MD completed EKG Constantin Mortensen MD completed SNOMED-CT: [id number] Current Medications Documented Constantin Mortensen MD completed
--- OUTSIDE RECORDS SUMMARY | 2024-11-13 01:25 | XMS_ITS | Clinical Summary ---
Author Organization [facility] Address [address] [place] [address] Care Team Providers Care Equipment Hire Manager Name Role Phone Unavailable Primary Care Provider Unavailabl e Source Comments [facility],non-owned Affiliates and Associated Physician Practices is amultiple site organization consisting of ambulatory clinics and hospital sitesin [place], [place], [place] and [place]. This disclosure is being madepursuant to the Care Everywhere program and may not contain all information available regarding this patient. Last updated 18.[facility] Link_[employer] Devices Social History Tobacco Use Types Packs/Day Years Used Date Smoking Tobacco: Never Assessed Sex and Gender Information Value Date Recorded Sex Assigned at Not on file Gender Identity Not on file Sexual Orientation Not on file Plan of Treatment Health Maintenance Due Date Last Done Comments COLOGUARD (AGES 45-75) - COL ON CA SCREENING 1968 COLON MONITORING 1968 COLONOSCOPY - COLON CA SCREENING 1968 CT COLONOGRAPHY - COLON CA SCREENING 1968 Colorectal Cancer Screening 1968 FIT - COLON CA SCREENING 1968 FLEX SIG - COLON CA SCREENING 1968 LIPID TESTING 1968 HIV SCREENING 1983 HEPATITIS C SCREENING 03/24/1986 DTAP/TDAP/TD VACCINES (1 - Tdap) 1987 HEPATITIS B VACCINE (1 of 3 - 19+ 3-dose series) 1987 PNEUMOCOCCAL VACCINE 50+ (1 of 1 - PCV) 2018 ZOSTER VACCINE (1 of 2) 2018 COVID-19 VACCINE ( - 2023-2 5 season) 2024 DEPRESSION SCREENING 08/05/2024 MEDICARE AWV CALENDAR YEAR 2024 INFLUENZA VACCINE (Season Ended) 2025 HIB VACCINE Aged Out No longer eligi ble based on patient's age to complete this topic HPV VACCINE Aged Out No longer eligi ble based on patient's age to complete this topic MENINGOCOCCAL (Group B) VACC INE SHARED DECISION-MAKING Aged Out No longer eligibl e based on patient's age to complete this topic MENINGOCOCCAL GROUPS A/C/Y/W VACCINE Aged Out No longer eligible b ased on patient's age to complete this topic PNEUMOCOCCAL VACCINE Aged Out No long er eligible based on patient's age to complete this topic
[2024-11-13 10:54] VITALS: BP 164/95; PULSE 70; RESP 22; TEMP 36.1; O2SAT 100; BMI 34.7
[2024-11-13] MEDS: LACTATED RINGERS 1,000 ML 150 ML IV CONT (11:03)
--- NOTE | 2024-11-13 12:35 | P.PNAN_ITS ---
Anes - Initial Pre Proc Eval Procedure: Operation Date: 11/13/24 13:00 Proposed Procedures p Screening Colonoscopy - Samy Sandhu MD Date/Time: 11/13/24 12:35 Surgeon: Samy Sandhu MD Pre Op Diagnosis: screening colon Patient Data Age: 54 Gender: M Height: 1.75 m Weight: 106.8 kg Last Vital Signs Temp 97 F L 11/13/24 10:54 Pulse 70 11/13/24 10:54 Resp 22 H 11/13/24 10:54 BP 164/95 H 11/13/24 10:54 Pulse Ox 100 11/13/24 10:54 O2 Del Method Room Air 11/13/24 10:54 Allergies Allergy/AdvReac Type Severity Reaction Status Date / Time No Known Allergies Allergy Verified 11/13/24 10:45 Home Medications ?Medication ?Instructions ?Recorded ?Confirmed ?Type albuterol sulfate 90 mcg/actuation 1 inh inhalation DAILY PRN 11/03/24 11/03/24 History aerosol inhaler shortness of breath or wheezing apixaban 5 mg tablet (Eliquis) 5 mg PO BID 11/03/24 11/13/24 History atorvastatin 80 mg tablet (Lipitor) 90 mg PO DAILY 11/03/24 11/13/24 History dapagliflozin propanediol 10 mg 10 mg PO DAILY 11/03/24 11/13/24 History tablet (Farxiga) furosemide 40 mg tablet 40 mg PO DAILY 11/03/24 11/13/24 History magnesium oxide 400 mg (241.3 mg 400 mg PO DAILY 11/03/24 11/13/24 History magnesium) tablet metoprolol succinate 50 mg 50 mg PO DAILY 11/03/24 11/13/24 History tablet,extended release 24 hr sertraline 50 mg tablet 50 mg PO DAILY 11/03/24 11/13/24 History spironolactone 50 mg tablet 50 mg PO DAILY 11/03/24 11/13/24 History tramadol 50 mg tablet 50 mg PO Q8H PRN pain 11/03/24 11/03/24 History amiodarone 200 mg tablet 200 mg PO DAILY 11/13/24 11/13/24 History Patient hx anesthesia problems: none Family hx anesthesia problems: none Results Review: All pre-operative results and documents have been reviewed as part of the pre- operative evaluation. PMFSH Family History Family History (System 02/18/20 @ 11:57 by Billy Wrihgt) Other Family history of cardiovascular disease Hypertension Social History Social History (System 02/18/20 @ 11:57 by Billy Wright) Smoking status: Former smoker Tobacco type: cigars Alcohol intake: current Substance use type: marijuana Other substance usage details: daily Living arrangements: alone Spiritual care concerns: No Anes - Eval Final PreProcedure Day of Procedure 11/13/24 12:35 Patient weight: obese Heart: regular rate and rhythm Lungs: clear to auscultation Airway: Mallampati scale class II Neurological: alert and oriented Last oral intake: >/= 8 hours ASA classification: III Emergent: no Anesthetic plan: proceed Anesthesia type and monitoring: general GIVS and standard monitoring Results Review: All pre-operative results and documents have been reviewed as part of the pre- operative evaluation. Informed Consent: The patient's anesthetic plan and its attendant risks and benefits were discussed with the patient/family/POA. Questions were solicited and answers provided to the satisfaction of the patient/family/POA.
--- NOTE | 2024-11-13 12:35 | PM.IMHP ---
H&P: HPI History of Present Illness Date/Time: 11/13/24 12:35 Chief Complaint: Screening colonoscopy Narrative: This is the patient's first colonoscopy. There are no GI symptoms and there is no family history of colorectal cancer. Review of Systems Review of Systems: All systems reviewed & are unremarkable except as noted in HPI and below PMFSH Family History Family History (System 02/18/20 @ 11:57 by Billy Wright) Other Family history of cardiovascular disease Hypertension Social History Social History (System 02/18/20 @ 11:57 by Billy Wright) Smoking status: Former smoker Tobacco type: cigars Alcohol intake: current Substance use type: marijuana Other substance usage details: daily Living arrangements: alone Spiritual care concerns: No Meds Home Medications and Allergies Home Medications ?Medication ?Instructions ?Recorded ?Confirmed ?Type albuterol sulfate 90 mcg/actuation 1 inh inhalation DAILY PRN 11/03/24 11/03/24 History aerosol inhaler shortness of breath or wheezing apixaban 5 mg tablet (Eliquis) 5 mg PO BID 11/03/24 11/13/24 History atorvastatin 80 mg tablet (Lipitor) 90 mg PO DAILY 11/03/24 11/13/24 History dapagliflozin propanediol 10 mg 10 mg PO DAILY 11/03/24 11/13/24 History tablet (Farxiga) furosemide 40 mg tablet 40 mg PO DAILY 11/03/24 11/13/24 History magnesium oxide 400 mg (241.3 mg 400 mg PO DAILY 11/03/24 11/13/24 History magnesium) tablet metoprolol succinate 50 mg 50 mg PO DAILY 11/03/24 11/13/24 History tablet,extended release 24 hr sertraline 50 mg tablet 50 mg PO DAILY 11/03/24 11/13/24 History spironolactone 50 mg tablet 50 mg PO DAILY 11/03/24 11/13/24 History tramadol 50 mg tablet 50 mg PO Q8H PRN pain 11/03/24 11/03/24 History amiodarone 200 mg tablet 200 mg PO DAILY 11/13/24 11/13/24 History Allergies Allergy/AdvReac Type Severity Reaction Status Date / Time No Known Allergies Allergy Verified 11/13/24 10:45 Vital Signs Vital Signs - 24 hr 11/13/24 10:54 Temperature 97 F L Pulse Rate 70 Respiratory Rate 22 H Blood Pressure 164/95 H Pulse Oximetry 100 Oxygen Delivery Room Air Exam Const: General: cooperative and healthy appearing Resp: Effort & Inspection: normal respiratory effort and able to speak in complete sentences Auscultation: clear to auscultation bilaterally Cardio: Rate: regular rate Rhythm: regular rhythm GI: Inspection: normal to inspection GI Palp: No No hepatosplenomegaly present Auscultation: normal bowel sounds Rectal Exam: deferred Skin: General skin exam: normal color Psych: Appearance: grossly normal Mental Status: mental status grossly normal Assessment and Plan Assessment and plan (1) Encounter for screening colonoscopy: Code(s): Z12.11 - Encounter for screening for malignant neoplasm of colon Status: Acute Assessment and Plan: The patient is deemed a good candidate for the procedure. Consent signed. Will proceed.
[2024-11-13 13:03] VITALS: BP 134/83; PULSE 63; RESP 19; O2SAT 100
[2024-11-13 13:13] VITALS: BP 141/83; PULSE 55; RESP 18; O2SAT 100
[2024-11-13 13:23] VITALS: BP 154/82; PULSE 61; RESP 17; O2SAT 100
== END 2024-11-13 13:40 | disposition home or self-care (01) ==
PROVIDERS: PCP Family Medicine; Referring Provider Registered Nurse; Visit Provider Internal Medicine Gastroenterology
PROC: 0DJD8ZZ Inspection of Lower Intestinal Tract, Via Natural or Artificial Opening Endoscopic (ICD-10-PCS; CPT 45378; principal; 2024-11-13 13:00)
DX: Z12.11 Encounter for screening for malignant neoplasm of colon (principal); D12.2 Benign neoplasm of ascending colon; F12.90 Cannabis use, unspecified, uncomplicated; E66.9 Obesity, unspecified; Z68.34 Body mass index [BMI] 34.0-34.9, adult; Z79.51 Long term (current) use of inhaled steroids; Z79.01 Long term (current) use of anticoagulants; Z79.84 Long term (current) use of oral hypoglycemic drugs; Z79.891 Long term (current) use of opiate analgesic; Z87.891 Personal history of nicotine dependence; Z82.49 Family history of ischemic heart disease and other diseases of the circulatory system
CPT/HCPCS: 45385; 88305; J2003; J2704; J7120